=== PATIENT | male | born 1950 | race Caucasian/White ===

== ENCOUNTER → 2023-06-15 | Emergency (ER) | payer OTHER ==
[~2023-06-15] MED LIST: CIPROFLOXACIN 400mg IV 400 MG/200 ML BAG IV ONE; METRONIDAZOLE 500mg IVPB 500 MG/100 ML BAG IV ONE; NA CHLORIDE 0.9% 500 ML ONE
[2023-06-15 16:25] LABS: Absolute Lymphocytes (CBC) 1.3 K/uL (0.7-4.9); Hematocrit 43.2 % (39.6-49.0); Lymphocytes % 9.9 % (15.3-44.8); MCV 92.7 fL (80-100); MPV 7.6 fL (7.6-11.3); Platelets 344 thou/uL (152-406); RBC Red Blood Cell Count 4.65 M/uL (4.33-5.43)
[2023-06-15 16:40] LABS: Albumin 3.9 g/dL (3.4-5.0); Bilirubin Total 0.6 mg/dL (0.2-1.0); Potassium 4.8 mEq/L (3.5-5.1); Protein, Total 8.1 g/dL (6.4-8.2)
--- NOTE | 2023-06-15 18:20 | RAD REPORT ---
EXAM DESCRIPTION: CTAbdomen Pelvis Wo Contrast - 06/15/2023 6:04 pm CLINICAL HISTORY: Abd pain;Constipation COMPARISON: No comparisons TECHNIQUE: CT of the abdomen and pelvis was performed. All CT scans are performed using dose optimization technique as appropriate and may include automated exposure control or mA/KV adjustment according to patient size. FINDINGS: Lower chest: No acute abnormality. Liver: No acute abnormality or suspicious lesions. Biliary: No biliary ductal dilatation. Stomach: No significant focal abnormality. Duodenum: No significant focal abnormality. Pancreas: No significant abnormality. Spleen: No significant abnormality. Adrenal: No suspicious lesions. Kidney/ureter: No hydronephrosis. No renal calculi. Retroperitoneum: No retroperitoneal adenopathy. Vascular: No aneurysm. Bowel: Rectal wall thickening and perirectal stranding is present. No bowel obstruction identified.. No appendicitis . Peritoneum: No ascites or free air. Bladder: Grossly unremarkable. Reproductive: No adnexal masses. Bones: Mild to moderate disc height loss at L4-5 and L5-S1. Other: n/a IMPRESSION: Findings most consistent with a proctitis. No bowel obstruction. Follow colonoscopy coul d be obtained if none performed recently.
--- NOTE | 2023-06-15 19:54 | EDPHYS ---
Physician Documentation [facility] Name: Jelani He Age: 73 yrs Sex: Male : 1950 Arrival Date: 06/15/2023 Time: 15:10 Bed 12 Private MD: ED Physician Prasanth Pa HPI: 06/15 15:46 This 73 yrs old Male presents to ER via Ambulatory with complaints of Constipation. kb 15:46 Patient is a 73-year-old male who presents for constipation for 4 days. States today kb has been having rectal pain, he believes is from hemorrhoids. States he was sick last week, was given Zithromax and guaifenesin with codeine. Denies abdominal pain, nausea, vomiting, fever.. Historical: - Allergies: 15:35 No Known Allergies; ll1 - PMHx: 15:35 None; ll1 - PSHx: 15:35 prostate CA SX; ll1 - Immunization history:: Adult Immunizations up to date. - Social history:: Smoking status: Patient denies any tobacco usage or history of. ROS: 18:55 Constitutional: Negative for fever, chills, and weight loss, kb 18:55 Abdomen/GI: Positive for constipation, rectal pain, 18:55 All other systems are negative, Exam: 18:55 Constitutional: This is a well developed, well nourished patient who is awake, alert, kb and in no acute distress. Head/Face: Normocephalic, atraumatic. ENT: Moist Mucous membranes Cardiovascular: Regular rate Respiratory: Respirations even and unlabored. No increased work of breathing. Talking in full sentences Abdomen/GI: Soft, non-tender. No distention Skin: Warm, dry with normal turgor. Normal color. MS/ Extremity: Pulses equal, no cyanosis. Neurovascular intact. Full, normal range of motion. Neuro: Awake and alert, GCS 15, oriented to person, place, time, and situation. Moves all extremities. Normal gait. Vital Signs: 15:33 BP 155 / 104; Pulse 98; Resp 17; Temp 98.4; Pulse Ox 100% ; ll1 15:36 BP 162 / 103; ll1 19:30 BP 148 / 89; Pulse 79; Resp 18; Pulse Ox 100% on R/A; Pain 0/10; pf1 20:58 BP 134 / 81; Pulse 94; Pulse Ox 98% on R/A; Pain 0/10; tm6 19:30 Pain Scale: Adult pf1 20:58 Pain Scale: Adult tm6 MDM: 15:21 Patient medically screened. kb 18:56 Differential diagnosis: non-specific abd pain, bowel obstruction, colitis, kb diverticulitis, fecal impaction. Data reviewed: vital signs, nurses notes. 19:51 Consideration of Admission/Observation Escalation of care including kb admission/observation considered. admission considered, but pt is afebrile, nontoxic in appearance, tolerating po and had a large BM prior to CT. Educated on strict return precautions. . Counseling: I had a detailed discussion with the patient and/or guardian regarding the historical points, exam findings, and any diagnostic results supporting the discharge/admit diagnosis, lab results, radiology results, the need for outpatient follow up, a family practitioner, to return to the emergency department if symptoms worsen or persist or if there are any questions or concerns that arise at home. 06/15 15:36 Order name: CBC with Diff; Complete Time: 16:37 kb 06/15 15:36 Order name: CMP; Complete Time: 16:44 kb 06/15 15:36 Order name: Lipase; Complete Time: 16:44 kb 06/15 18:23 Order name: Lactate w/ 2H reflex if indic.; Complete Time: 19:12 kb 06/15 18:23 Order name: Blood Culture Adult (2) kb 06/15 17:54 Order name: Abdomen ; Complete Time: 18:21 EDMS 06/15 15:36 Order name: IV Saline Lock; Complete Time: 16:14 kb 06/15 15:36 Order name: Labs collected and sent; Complete Time: 16:14 kb Administered Medications: 16:14 Drug: NS 0.9% IV 500 ml IV at bolus once Route: IV; Rate: bolus; Site: right kc6 antecubital; 17:22 Follow up: Response: No adverse reaction; IV Status: Completed infusion; IV Intake: kc6 500ml 19:00 Follow up: Response: No adverse reaction pf1 19:53 Follow up: Response: No adverse reaction; IV Intake: 500ml tm6 19:30 Drug: metroNIDAZOLE IVPB 500 mg 100 ml IVPB at 200 ml/hr once over 30 mins Volume: 100 pf1 ml; Route: IVPB; Rate: 200 ml/hr; Infused Over: 30 mins; Site: left antecubital; 19:51 Follow up: Response: No adverse reaction pf1 19:53 Drug: Ciprofloxacin IVPB 400 mg 200 ml IVPB once over 60 mins Volume: 200 ml; Route: tm6 IVPB; Infused Over: 60 mins; Site: right antecubital; Disposition: 19:17 I was immediately available on-site in the Emergency Department for consultation in the ms3 care of the patient. Disposition Summary: 06/15/23 19:53 Discharge Ordered Notes: Location: Home kb Condition: Stable kb Diagnosis - Proctitis kb Followup: kb - With: Emergency Department - When: As needed - Reason: Worsening of condition Followup: kb - With: Private Physician - When: 2 - 3 days - Reason: Recheck today's complaints, Continuance of care, Re-evaluation by your physician Discharge Instructions: - Proctitis kb - Discharge Summary Sheet pf1 Forms: - Medication Reconciliation Form kb - Thank You Letter kb - Antibiotic Education kb - Prescription Opioid Use kb - Patient Portal Instructions kb - Leadership Thank You Letter kb - SBAR form pf1 Prescriptions: - Cipro 500 mg Oral Tablet - take 1 tablet ORAL route every 12 hours for 10 days; 20 tablet; Refills: 0, kb Product Selection Permitted - Flagyl 500 mg Oral Tablet - take 1 tablet ORAL route every 8 hours for 10 days; 30 tablet; Refills: 0, kb Product Selection Permitted Signatures: Dispatcher [employer] EDIrma Shultz, MASON SUEDE BRUSHER-Devaughn Mills, RN RN ll1 Prasanth Pa DO DO ms3 Amparo Ashton RN RN kc6 Leonie Jaimes RN RN pf1 Ana Laura Mondragon, CHERELLE RN tm6 Corrections: (The following items were deleted from the chart) 17:54 15:37 Abdomen Pelvis W Con+CT.RAD.BRZ ordered. EDCO EDMS
--- NOTE | 2023-06-15 19:54 | ER ---
Nurse's Notes [facility] Name: Jelani He Age: 73 yrs Sex: Male : 1950 Arrival Date: 06/15/2023 Time: 15:10 Bed 12 Private MD: Diagnosis: Proctitis Presentation: 06/15 15:33 Chief complaint: Patient states: Constipation, last BM Wednesday. Had some rectal pain ll1 earlier. Coronavirus screen: Client denies travel out of the [place] in the last 14 days. At this time, the client does not indicate any symptoms associated with coronavirus-19. Ebola Screen: Patient denies travel to an Ebola-affected area in the 21 days before illness onset. Initial Sepsis Screen: Does the patient meet any 2 criteria? No. Patient's initial sepsis screen is negative. Does the patient have a suspected source of infection? Yes: Acute abdominal pain. Risk Assessment: Do you want to hurt yourself or someone else? Patient reports no desire to harm self or others. Onset of symptoms was June 13, 2023. 15:33 Method Of Arrival: Ambulatory ll1 15:33 Acuity: SMILEY 3 ll1 Historical: - Allergies: 15:35 No Known Allergies; ll1 - PMHx: 15:35 None; ll1 - PSHx: 15:35 prostate CA SX; ll1 - Immunization history:: Adult Immunizations up to date. - Social history:: Smoking status: Patient denies any tobacco usage or history of. Screenin:00 [facility] ED Fall Risk Assessment (Adult) History of falling in the last 3 months, kc6 including since admission No falls in past 3 months (0 pts) Confusion or Disorientation No (0 pts) Intoxicated or Sedated No (0 pts) Impaired Gait No (0 pts) Mobility Assist Device Used No (0 pt) Altered Elimination No (0 pt) Score/Fall Risk Level 0 - 2 = Low Risk. Abuse screen: Denies threats or abuse. Denies injuries from another. Nutritional screening: No deficits noted. Tuberculosis screening: No symptoms or risk factors identified. Assessment: 16:00 General: Appears in no apparent distress. comfortable, well groomed, well developed, kc6 Behavior is calm, cooperative, appropriate for age. Pain: Complains of pain in abdomen. Neuro: Level of Consciousness is awake, alert, obeys commands, Oriented to person, place, time, situation, Appropriate for age. Cardiovascular: Capillary refill < 3 seconds. Respiratory: Airway is patent Trachea midline Respiratory effort is even, unlabored, Respiratory pattern is regular, symmetrical. GI: Abdomen is flat, non-distended, Bowel sounds present X 4 quads. Abd is soft X 4 quads Reports constipation, Patient currently denies nausea, vomiting. : No signs and/or symptoms were reported regarding the genitourinary system. EENT: No signs and/or symptoms were reported regarding the EENT system. Derm: No signs and/or symptoms reported regarding the dermatologic system. Skin is intact, is healthy with good turgor, Skin is pink, warm \T\ dry. Musculoskeletal: No signs and/or symptoms reported regarding the musculoskeletal system. Circulation, motion, and sensation intact. Capillary refill < 3 seconds, Range of motion: intact in all extremities. 17:00 Reassessment: Patient appears in no apparent distress at this time. No changes from kc6 previously documented assessment. Patient and/or family updated on plan of care and expected duration. Pain level reassessed. Patient is alert, oriented x 3, equal unlabored respirations, skin warm/dry/pink. 18:26 Reassessment: Patient appears in no apparent distress at this time. No changes from kc6 previously documented assessment. Patient and/or family updated on plan of care and expected duration. Pain level reassessed. Patient is alert, oriented x 3, equal unlabored respirations, skin warm/dry/pink. 19:30 General: Appears in no apparent distress. comfortable, well groomed, well developed, pf1 Behavior is calm, cooperative, appropriate for age, quiet. 19:30 Pain: Complains of pain in abdomen and rectal pain for 3 days. Patient denies any pain pf1 at this time. Pain currently is 0 out of 10 on a pain scale. Neuro: No deficits noted. Level of Consciousness is awake, alert, obeys commands, Oriented to person, place, time, situation, Appropriate for age. Cardiovascular: No deficits noted. Capillary refill < 3 seconds Patient's skin is warm and dry. Respiratory: No deficits noted. Airway is patent Respiratory effort is even, unlabored, Respiratory pattern is regular, symmetrical. GI: Abdomen is flat, non-distended, Bowel sounds present X 4 quads. Abd is soft Abd is non tender X 4 quads Reports lower abdominal pain, constipation. : No deficits noted. No signs and/or symptoms were reported regarding the genitourinary system. EENT: No deficits noted. No signs and/or symptoms were reported regarding the EENT system. Derm: No deficits noted. No signs and/or symptoms reported regarding the dermatologic system. Musculoskeletal: Circulation, motion, and sensation intact. Capillary refill < 3 seconds. 20:09 Reassessment: waiting for antibiotics to finish to discharge. tm6 20:58 Reassessment: Patient appears in no apparent distress at this time. No changes from tm6 previously documented assessment. Vital Signs: 15:33 BP 155 / 104; Pulse 98; Resp 17; Temp 98.4; Pulse Ox 100% ; ll1 15:36 BP 162 / 103; ll1 19:30 BP 148 / 89; Pulse 79; Resp 18; Pulse Ox 100% on R/A; Pain 0/10; pf1 20:58 BP 134 / 81; Pulse 94; Pulse Ox 98% on R/A; Pain 0/10; tm6 19:30 Pain Scale: Adult pf1 20:58 Pain Scale: Adult tm6 ED Course: 15:14 Patient arrived in ED. kj1 15:21 Irma Newton FNP-C is PHCP. kb 15:21 Prasanth Pa DO is Attending Physician. kb 15:35 Triage completed. ll1 15:36 Arm band placed on. ll1 16:00 Patient has correct armband on for positive identification. Bed in low position. Call kc6 light in reach. Side rails up X 1. Adult w/ patient. Client placed on continuous cardiac and pulse oximetry monitoring. NIBP monitoring applied. 16:01 Amparo Ashton, RN is Primary Nurse. kc6 16:14 Inserted saline lock: 20 gauge in right antecubital area, using aseptic technique. kc6 Blood collected. Patient maintains SpO2 saturation greater than 95% on room air. 18:05 Abdomen In Process Unspecified. EDMS 18:44 Inserted saline lock: 20 gauge in left antecubital area, using aseptic technique. Blood kc6 collected. 20:58 No provider procedures requiring assistance completed. IV discontinued, intact, tm6 bleeding controlled, No redness/swelling at site. Pressure dressing applied. 20:59 Provided Education on: prescriptions given. tm6 Administered Medications: 16:14 Drug: NS 0.9% IV 500 ml IV at bolus once Route: IV; Rate: bolus; Site: right kc6 antecubital; 17:22 Follow up: Response: No adverse reaction; IV Status: Completed infusion; IV Intake: kc6 500ml 19:00 Follow up: Response: No adverse reaction pf1 19:53 Follow up: Response: No adverse reaction; IV Intake: 500ml tm6 19:30 Drug: metroNIDAZOLE IVPB 500 mg 100 ml IVPB at 200 ml/hr once over 30 mins Volume: 100 pf1 ml; Route: IVPB; Rate: 200 ml/hr; Infused Over: 30 mins; Site: left antecubital; 19:51 Follow up: Response: No adverse reaction pf1 19:53 Drug: Ciprofloxacin IVPB 400 mg 200 ml IVPB once over 60 mins Volume: 200 ml; Route: tm6 IVPB; Infused Over: 60 mins; Site: right antecubital; Medication: 20:59 VIS not applicable for this client. tm6 Intake: 17:22 IV: 500ml; Total: 500ml. kc6 19:53 IV: 500ml; Total: 1000ml. tm6 Outcome: 19:53 Discharge ordered by . vinicio 20:58 Discharged to home ambulatory, with family, tm6 20:58 Condition: stable 20:58 Discharge instructions given to patient, family, Instructed on discharge instructions, follow up and referral plans. medication usage, Demonstrated understanding of instructions, follow-up care, medications, Prescriptions given X 2, 20:59 Patient left the ED. tm6 Signatures: Dispatcher [employer] EDIrma Shultz FNP-C FNP-Nancy Couch kj1 Devaughn Kincaid RN RN ll1 mAparo Ashton RN RN kc6 Leonie Jaimes RN RN pf1 Ana Laura Mondragon RN RN tm6
[2023-06-16 00:46] VITALS: TEMP 98.4
[2023-06-16 00:58] VITALS: BP 134/81; O2SAT 98
== END ==
LOC: ER 15:10
DX: K62.89 Other specified diseases of anus and rectum (principal)
CPT/HCPCS: 87040 ×2; 85025; 36415; 83605; 83690; 80053; 74176; 99285; J0744; J7040